=== PATIENT | male | born 1945 | race Caucasian/White ===

== ENCOUNTER 2019-01-06 18:03 | Inpatient (IN) | payer MEDICARE, BC, SELFPAY ==
[2019-01-06 18:04] VITALS: BP 173/91; PULSE 75; RESP 15; TEMP 36.7; O2SAT 97; BMI 27.3
[2019-01-06 18:18] VITALS: BP 135/99; PULSE 60; RESP 14; RESP 18; O2SAT 97; O2SAT 98
--- NOTE | 2019-01-06 18:18 | CT_ITS ---
STUDY: CT BRAIN WITHOUT CONTRAST REASON FOR EXAM: Male, 73 years old. Right sided weakness RADIATION DOSAGE (If Supplied By Facility): CTDIvol = ( 44.99 ) mGy, DLP = ( 796.11 ) mGycm TECHNIQUE: Transaxial CT imaging of the brain was performed without administration of intravenous contrast material. Individualized dose optimization techniques were used for this CT. COMPARISON: None. FINDINGS: There is no acute bleed or infarct. There are chronic ischemic and atrophic changes. The ventricles are normal in configuration. There is no hydrocephalus. The visualized paranasal sinuses are clear. The mastoid air cells are well aerated. There is no skull fracture. CT/Brain/Head without Contrast IMPRESSION: No acute intracranial abnormality. Chronic ischemic and atrophic changes. Electronically Signed: Riley Whitfield, at 19:03 EDT Tel , Service support ,
--- NOTE | 2019-01-06 18:18 | EKG12_ITS ---
Test Reason : WEAKNESS Blood Pressure : / mmHG Vent. Rate : 070 BPM Atrial Rate : 070 BPM P-R Int : 218 ms QRS Dur : 088 ms QT Int : 376 ms P-R-T Axes : 062 014 116 degrees QTc Int : 406 ms Sinus rhythm with 1st degree A-V block with Premature supraventricular complexes T wave abnormality, consider lateral ischemia Abnormal ECG Confirmed by KENAN PUGH ([id number]), editor index FANNY SHARMA ([id number]) on 01/11/2019 2:01:05 PM Referred By: Confirmed By:KENAN PUGH
[2019-01-06 18:19] VITALS: BP 154/90; PULSE 60; RESP 18; O2SAT 98
--- NOTE | 2019-01-06 18:19 | ED.VIS.STROK ---
History of Present Illness Chief Complaint: Weakness Informant: Patient, Family Onset: Yesterday - Morning Context: Sudden Onset Timing: Continuous Quality and Location: Right Facial Droop, Right Face Paresthesia, Right Arm Parasthesia, Right Leg Parasthesia, Right Leg Weakness, Slurred Speech Onset: Unspecified time Friday Current Severity: Mild Maximum Severity: Moderate Worsened by: Nothing Relieved by: Nothing Associated Symptoms: Negative for: Headache, Nausea, Vomiting, Chest Pain Narrative: Patient is an elderly male who was brought to the emergency department for evaluation for possible stroke. Pain is concerned because of facial droop, slurred speech and his symptoms. He describes right-sided symptoms that started yesterday morning. His symptoms have improved. He denies history of TIA or CVA. He is on no anticoagulant. He does not have history of atrial fibrillation. Prior similar symptoms: No Recent Illness/Hospitalization: No Past Medical History - Allergies and Home Meds Allergies/Adverse Reactions: Allergies No Known Allergies Allergy (Verified 01/06/19 18:04) Primary Care Physician: Laura Hopper [Primary Care Provider] - Prior records reviewed: No Past Medical History: - - Family history of DVT and PE 2 years ago. He is presently on Coumadin and metoprolol Lives: Alone Smoking Status: Never smoker Alcohol: None Drugs: None Review of Systems General: Denies: Chills, Fever, Sweats Eyes: Denies: Visual changes - bilaterally, Blurred Vision - bilaterally, Diplopia ENT: Denies: Rhinorrhea, Sore throat Cardiovascular: Denies: Chest pain, Palpitations Respiratory: Denies: Dyspnea, Cough, Dyspnea on exertion Gastrointestinal: Denies: Abdominal pain, Nausea, Vomiting, Diarrhea, Melena, Hematochezia Genitourinary: Denies: Dysuria, Hematuria, Frequency Musculoskeletal: Denies: Myalgias, Arthralgias, Neck pain, Back pain, Swelling, Extremity Pain Skin: Denies: Rash, Wounds Neurological: Reports: Weakness, Parasthesia, Numbness Hematologic: Denies: Easy bruising, Easy bleeding STROKE Vital Signs/Narrative: Vital Signs Temp Pulse Resp BP Pulse Ox 01/06/19 18:04 98.0 F 75 15 173/91 H 97 Inital Vital Signs reviewed: Yes - NIHSS Initial 1a Level of Consciousness: 0 1b LOC Questions (Score 2 if aphasic/stupor): 0 1c LOC Commands (Only score 1st attempt): 0 2 Best Gaze (If aphasic, use reflexive mvmts.): 0 3 Visual: 0 4 Facial Palsy: 1 5 Motor Arm Right (UN = amputation/fusion): 0 5 Motor Arm Left: 0 6 Motor Leg Right: 0 6 Motor Leg Left: 0 7 Limb ataxia (Only + if out of proportion): 0 8 Sensory (Aphasia/stupor=0 or 1, coma=2): 1 9 Best Language: 0 10 Dysarthria (mute, coma=2, intubated=UN): 1 11 Extinction and Inattention (only scored if +): 0 Total Score: 3 General: Well nourished, Well developed Head: Normocephalic, Atraumatic Eyes: Perrl, EOMI ENT: Moist mucous membranes, No rhinorrhea Neck: Supple, Nontender Cardiovascular: Regular rate, Regular rhythm, No murmurs Respiratory: No distress, CTA bilaterally, Chest nontender Abdomen: Soft, Nontender, Nondistended, Normal bowel sounds Back: Nontender, Normal Inspection Extremities: Nontender, No edema Skin: Normal color, No rash Neurological: Alert, Oriented x3, Cranial nerves II-XII grossly intact, Normal Strength, Normal DTR. Negative for: Normal Sensation Psychological: Normal affect Diagnostic/Tx/Re-eval Impressions Brain CT 01/06/19 18:18 IMPRESSION: No acute intracranial abnormality. Chronic ischemic and atrophic changes. Electronically Signed: Riley Whitfield, at 19:03 EDT Tel , Service support , 01/06/19 18:18 Brain/Head without Contrast [CT] Stat Laboratory Results 01/06/19 01/06/19 01/06/19 18:05 18:05 18:05 WBC 5.0 RBC 4.78 Hgb 14.2 Hct 43.3 MCV 90.6 MCH 29.7 MCHC 32.8 RDW Std Deviation 43.1 RDW Coeff of Wade 13.0 Plt Count 192 MPV 10.9 Immature Gran % (Auto) 0.200 Neut % (Auto) 46.8 L Lymph % (Auto) 39.6 Evans % (Auto) 11.0 H Eos % (Auto) 1.8 Baso % (Auto) 0.6 Absolute Neuts (auto) 2.3 Absolute Lymphs (auto) 1.97 Nucleated RBC % 0 PT 25.4 H INR 2.3 APTT 32.2 Sodium 140 Potassium 4.1 Chloride 110 H Carbon Dioxide 25.0 Anion Gap 5 BUN 12 Creatinine 0.98 Estim Creat Clear Calc 56.65 Est GFR (MDRD) Af Amer 96 Est GFR (MDRD) Non-Af 79 BUN/Creatinine Ratio 12.2 Glucose 90 Calcium 8.9 Troponin I < 0.015 - EKG Initial EKG Interpretation: Sinus Rhythm - Ventricular rate 70. There is first-degree AV block. There is evidence of supraventricular complexes. IA interval is prolonged at 218 ms. QS duration normal at 80 ms. QT duration is 376 ms. [place] is normal. - Medical Decision Making Stroke Team Activated: No Reviewed Inclusion/Exclusion criteria: No Was Patient considered for Endovascular Intervention?: No IV Alteplase (t-PA) Administered: No No contraindications for IV Alteplase (t-PA) administration.: No - Patient on Coumadin Alteplase (t-PA) risks, benefits, alternative discussed: No ED Disposition - Plan for ED Patient: Disposition: Acute Care Hospital [facility] Diagnosis: Acute cerebrovascular accident (CVA) Referrals: Laura Hopper [Primary Care Provider] -
[2019-01-06 18:24] VITALS: O2SAT 98
[2019-01-06 18:30] LABS: Absolute Lymphocyte Count 1.97 X10^3/uL (0.83-4.51); Absolute Neutrophil Count 2.3 X10^3/uL (2.0-7.7); Basophil# 0.03 X10^3/uL; Basophil% 0.6 % (0-1); Eosinophil# 0.09 X10^3/uL; Eosinophils% 1.8 % (0-5); Hematocrit 43.3 % (40-54); Hemoglobin 14.2 g/dL (13.0-16.5); Lymphocyte # 1.97 X10^3/ul (4.0); Lymphocyte % 39.6 % (19-41); Mean Corp Hgb Conc 32.8 g/dL (32-36); Mean Corpuscular Hgb 29.7 pg (27.0-32.0); Mean Corpuscular Volume 90.6 fL (80-94); Mean Platelet Vol. 10.9 fl (6.2-12.0); Monocyte# 0.55 X10^3/uL; NRBC Flagged by Analyzer 0 % (0-5); Neutrophil # 2.33 X10^3/uL (2.7-7.7); Neutrophil % 46.8 % (47-70); Platelet Count 192 K/mm3 (150-450); RBC Distribution Width SD 43.1 fl (35.1-43.9); Red Blood Count 4.78 M/mm3 (4.6-6.2)
[2019-01-06 18:44] LABS: Anion Gap 5 (5-15); BUN 12 mg/dL (7-18); BUN/Creat Ratio 12.2 RATIO (10-20); Calcium,Total 8.9 mg/dL (8.5-10.1); Chloride 110 mmol/L (98-107); Creatinine, Serum 0.98 mg/dL (0.70-1.30); EST Glomerular Filtration Rate 79 mL/min (>60); Est Glom Filt Rate - Afr Amer 96 mL/min (>60); Estimated Creatinine Clearance 56.65 ml/min; Glucose 90 mg/dL (74-106); Potassium 4.1 mmol/L (3.5-5.1); Sodium Level 140 mmol/L (136-145)
[2019-01-06 18:47] LABS: International Normalized Ratio 2.3; Partial Thromboplast Time 32.2 Seconds (24.1-36.2); Prothrombin Time (Protime)PT. 25.4 SECONDS (11.7-14.9)
[2019-01-06 19:38] VITALS: BMI 27.4
--- NOTE | 2019-01-06 19:43 | PCM.HP.STD ---
Problem List (1) Acute cerebrovascular accident (CVA) Status: Acute History of Present Illness Date of Admission: 01/06/19 Chief Complaint: expressive aphasia The patient is a 73 year old M with a significant history of A. fib status post ablation; DVT; and hypertriglyceridemia who presented to the emergency department with 1 day history of expressive aphasia. Also patient has right leg weakness with difficulty to ambulate. lmportantly, patient have numbness that has been going on for some time and it is unrelated to his current symptoms. Past Medical History Medical History: Medical History (Last Reviewed 01/07/19 @ 01:12 by Jordon Richards MD) BPH (benign prostatic hyperplasia) N40.0 Allergies No Known Allergies Allergy (Verified 01/06/19 18:04) Home Medications: Ambulatory Orders Medication Instructions Recorded Finasteride [Proscar] 5 mg PO DAILY 01/06/19 Metoprolol Tartrate 25 mg PO DAILY 01/06/19 Tamsulosin HCl [Flomax] 0.8 mg PO DAILY 01/06/19 Warfarin Sodium [Coumadin] 5 mg PO DAILY 01/06/19 Surgical History: - - Left tibia surgery; TURP; ablation for A. fib Lives: Alone Smoking Status: Former smoker Alcohol: None Drugs: None - *Family History Maternal History Items: Dementia, - - High triglycerides Paternal History Items: Dementia Review of Systems Constitutional: Denies: Chills, Fever, Weight Change HEENT: Denies: Head Aches, Sinus Congestion, Sinus Drainage Cardiovascular: Denies: Chest Pain, Palpitations Respiratory: Denies: Cough, Shortness of breath at rest, Sputum production Gastrointestinal: Denies: Abdominal Pain, Nausea, Vomiting Genitourinary: Denies: Dysuria Musculoskeletal: Denies: Joint Pain, Joint Tenderness Skin: Denies: Rash, Wounds Neurological: Reports: Slurred speech, Focal weakness - Right leg, Numbness - Chronic. Denies: Tingling Psychiatric: Denies: Anxiety, Depression, Homicidal Ideations, Suicidal Ideations Hematologic/ Lymphatic: Denies: Easy Bruising, Easy Bleeding VTE Information - Inpt Only VTE Present on Admission: No VTE Mechan Device Prophylaxis: None VTE Pharm Prophylaxis ordered?: No Reason prophylaxis not ordered:: Treatment Not Indicated - On Coumadin for A. fib and DVT. Coumadin continued Patient Problems: Active and Suspected Problems (Last Updated 01/06/19 @ 20:21 by Jordon Richards MD) Acute cerebrovascular accident (CVA) (Acute) - Physical Exam General: Alert, Oriented x3, Cooperative HEENT: Atraumatic, PERRLA, EOMI, Normocephalic Neck: Supple, No JVD, Negative Carotid Bruits Lungs: Clear to auscultation, Normal air movement Cardiovascular: Regular rate, No murmurs Abdomen: Bowel Sounds Present, Soft, Non Tender Extremities: No edema, Capillary Refill Less than 3 Seconds Skin: No rashes, No breakdown Musculoskeletal: No Tenderness to Palpation of Joints or Extremities Neurological: Motor Exam 5/5 strength throughout, Slurred Speech, - - Gait was not tested. Right knee reflex is hyperreflexia. Normal reflex throughout otherwise Psych/Mental Status: Normal Affect, Appropriate Vital Signs Temp Pulse Resp BP Pulse Ox 98.0 F 60 18 154/90 H 98 01/06/19 18:04 01/06/19 18:19 01/06/19 18:19 01/06/19 18:19 01/06/19 18:24 Oxygen Flow Rate (L/min) 2 Oxygen Delivery Method Nasal Cannula Weight: 74.6 kg Body Mass Index (BMI) 27.3 Finger Stick Blood Glucose 91 Laboratory Tests Past 24 Hrs 01/06/19 01/06/19 01/06/19 18:05 18:05 18:05 WBC 5.0 RBC 4.78 Hgb 14.2 Hct 43.3 MCV 90.6 MCH 29.7 MCHC 32.8 RDW Std Deviation 43.1 RDW Coeff of Wade 13.0 Plt Count 192 MPV 10.9 Immature Gran % (Auto) 0.200 Neut % (Auto) 46.8 L Lymph % (Auto) 39.6 [place] % (Auto) 11.0 H Eos % (Auto) 1.8 Baso % (Auto) 0.6 Absolute Neuts (auto) 2.3 Absolute Lymphs (auto) 1.97 Nucleated RBC % 0 PT 25.4 H INR 2.3 APTT 32.2 Sodium 140 Potassium 4.1 Chloride 110 H Carbon Dioxide 25.0 Anion Gap 5 BUN 12 Creatinine 0.98 Estim Creat Clear Calc 56.65 Est GFR (MDRD) Af Amer 96 Est GFR (MDRD) Non-Af 79 BUN/Creatinine Ratio 12.2 Glucose 90 Calcium 8.9 Troponin I < 0.015 Assessment/Plan All Active Problems (Last Updated 01/06/19 @ 20:21 by Jordon Richards MD) Acute cerebrovascular accident (CVA) (Acute) The patient is a 73 year old M with a significant history of A. fib status post ablation; DVT; and hyperlipidemia who presented to the emergency department with 1 day history of expressive aphasia; right leg weakness consistent with probable CVA. Probable CVA NINDS NIH Scale was 1 (mild to moderate dysarthria CT of the head chronic ischemic and atrophic changes -Check Hba1c, Lipid level Physical therapy, occupational therapy and speech therapy to work with patient. N.p.o. until bedside swallow eval. Daily aspirin. High intensity statin Patient is outside window of permissive hypertension since he came to emergency department in more than 24 hours. MRI/MRAM of head; brain; and neck. Echocardiogram ordered. Neurology consult Atrial fibrillation status post ablation Patient sinus rhythm with first-degree AV block on presentation Metoprolol continued Coumadin continued. INR therapeutic Hypertriglyceridemia Lipitor ordered DVT prophylaxis Not indicated since patient is therapeutic on his Coumadin. Coumadin continued. Code Visit Inpatient E&M: 78576 Init Hosp L3
[2019-01-06 20:15] VITALS: BP 120/86; PULSE 70; RESP 20; TEMP 36.4; O2SAT 97
--- NOTE | 2019-01-06 20:20 | ECHOCS_ITS ---
Reason For Study: TIA/CVA Procedure This was a 2D Doppler, Color Flow transthoracic echocardiogram. Exam performed portable in patient room. Left Ventricle Normal size and thickness. The estimated ejection fraction is 55 %. Normal diastology for age. No regional wall motion abnormalities noted. Right Ventricle Normal RV size. Normal systolic function. Atria Normal left atrium. Normal right atrium. No doppler evidence for ASD. Bubble contrast study negative for right to left interatrial shunt. Mitral Valve There is no mitral valve stenosis. Mild (1+) mitral valve insufficiency. Tricuspid Valve There is no tricuspid stenosis. Trivial tricuspid valve insufficiency. Pulmonary artery systolic pressure is 30 mmHg. Aortic Valve Trisinus/trileaflet aortic valve. There is no aortic stenosis. No aortic valve insufficiency. Pulmonic Valve There is no pulmonic valvular stenosis. No pulmonic valve insufficiency. Great Vessels Normal aortic root. Pericardium/Pleural No pericardial effusion. Medication Diluted definity 5ml given slow IV push to enhance endocardial definition. Performed a rapid injection of agitated mix of 9 cc saline and 1cc air to assess for atrial septal defect. MMode/2D Measurements & Calculations LVIDd: 4.7 cm IVSd: 1.1 cm Ao root diam: 3.3 cm LVIDs: 3.4 cm LVPWd: 1.0 cm RVDd: 3.4 cm FS: 27.5 % LAV(MOD-bp): 52.3 ml LVAd ap4: 29.2 cm2 SV(MOD-sp4): 63.1 ml LAV(MOD-bp) Indexed: 29.3 ml/m2 EDV(MOD-sp4): 94.7 ml LAV(MOD-sp2): 42.8 ml EDV(sp4-el): 95.4 ml LAV(MOD-sp4): 50.9 ml LVAs ap4: 14.6 cm2 ESV(MOD-sp4): 31.7 ml ESV(sp4-el): 31.6 ml EF(MOD-sp4): 66.6 % EF(sp4-el): 66.9 % SV(sp4-el): 63.8 ml LA A4 area: 19.3 cm2 LA dimension(2D): 3.8 cm RA A4 area: 19.4 cm2 Time Measurements MV dec time: 0.17 sec Doppler Measurements & Calculations MV E max andrei: 71.4 cm/sec Lat Peak E' Andrei: 9.6 cm/sec Med Peak E' Andrei: 7.7 cm/sec MV A max andrei: 49.1 cm/sec E/E' lat: 7.4 E/E' med: 9.2 MV E/A: 1.5 Ao V2 max: 79.1 cm/sec LV V1 max: 66.2 cm/sec PA V2 max: 72.0 cm/sec Ao max P.5 mmHg LV V1 max P.8 mmHg TR max andrei: 235.5 cm/sec TR max P.2 mmHg Interpretation Summary Diluted definity 5ml given slow IV push to enhance endocardial definition. Performed a rapid injection of agitated mix of 9 cc saline and 1cc air to assess for atrial septal defect. The estimated ejection fraction is 55 %. Normal diastology for age. Bubble contrast study negative for right to left interatrial shunt. Mild (1+) mitral valve insufficiency. The study was technically difficult. Ordering Physician: Jordon Richards Referring Physician: AGUSTIN JOLLEY Performed By: Josie Quintanilla, RDCS, RVT
[2019-01-06 20:24] VITALS: BMI 27.0
--- NOTE | 2019-01-06 20:27 | ED.RN ---
vitals at [facility] time of , 64, 99% on RA, 12 at 2000
[2019-01-06 20:28] VITALS: PULSE 60
[2019-01-06 21:21] LABS: Hemoglobin A1c 5.7 % (4.2-6.3)
[2019-01-06] MEDS: Atorvastatin Calcium 40 MG Tablet PO (22:17)
[2019-01-07] VITALS (14 sets, daily range): BP systolic 112–131; BP diastolic 60–73; PULSE 37–67; RESP 14–16; TEMP 36.2–36.6; O2SAT 94–97
--- NOTE | 2019-01-07 00:28 | EKG12_ITS ---
Test Reason : RHYTHM CHANGE Blood Pressure : / mmHG Vent. Rate : 054 BPM Atrial Rate : 067 BPM P-R Int : 266 ms QRS Dur : 088 ms QT Int : 418 ms P-R-T Axes : 071 031 108 degrees QTc Int : 396 ms Sinus rhythm with 1st degree A-V block with Blocked Premature atrial complexes T wave abnormality, consider lateral ischemia Abnormal ECG When compared with ECG of 12-AUG-2008 07:27, MANUAL COMPARISON REQUIRED, DATA IS UNCONFIRMED Confirmed by ELVIRA MIX, OZIEL ([id number]), editor city FANNY SHARMA ([id number]) on 01/11/2019 1:35:16 PM Referred By: DR GALVEZ Confirmed By:OZIEL FELIX MD
[2019-01-07 06:15] LABS: Cholesterol 183 mg/dL (200); High Density Lipoprotein 29 mg/dL; Triglycerides 355 mg/dL; Very Low Density Lipoprotein 71 mg/dL (5-40)
[2019-01-07 07:15] LABS: Bedside Glucose 92 mg/dL (70-110)
--- NOTE | 2019-01-07 09:00 | MRI_ITS ---
STUDY: MRA OF THE HEAD WITHOUT CONTRAST REASON FOR EXAM: Male, 73 years old. Expressive aphasia and right leg weakness TECHNIQUE: 3-D [id number] (TOF) imaging was performed with MIPs. The study was performed unenhanced. COMPARISON: MRI same day FINDINGS: Normal bilateral petrous carotid arteries. Normal right cavernous carotid artery with a normal supraclinoid bifurcation. Normal left cavernous carotid artery with a normal supraclinoid bifurcation. Normal right A1 segments of the anterior cerebral artery. There is non-visualization of the left A1 segment of the anterior cerebral arteries consistent with either aplastic development or an occlusion. Normal intact anterior communicating artery (ACOM). Normal bilateral A2 segments of the anterior cerebral arteries. Normal right M1 and M2 segments of the middle cerebral arteries, with a normal M1 bifurcation. Normal left M1 and M2 segments of the middle cerebral arteries, with a normal M1 bifurcation. Normal right posterior communicating artery (PCOM). Normal left posterior communicating artery (PCOM). Normal bilateral vertebral arteries. Normal basilar artery with a normal basilar bifurcation. The visualized bilateral superior cerebellar (SCA) arteries are normal. Normal bilateral P1, P2 and visualized P3 segments of the posterior cerebral arteries. There is no demonstrated aneurysm of the [place]. There is no major vessel occlusion or hemodynamically significant stenosis. There is no demonstrated abnormality of the visualized brain. MRI/MRA Head ONLY without Contrast IMPRESSION: There is non-visualization of the left A1 segment of the anterior cerebral arteries consistent with either aplastic development or an occlusion. No other MRA evidence of intracranial arterial pathology. Electronically Signed: Phillip Gatica MD at 17:40 EDT Tel , Service support ,
--- NOTE | 2019-01-07 09:00 | MRI_ITS ---
STUDY: MRA NECK WITH AND WITHOUT CONTRAST REASON FOR EXAM: Male, 73 years old. Expressive aphasia and right leg weakness TECHNIQUE: 3-D [id number] (TOF) imaging was performed in an 1.5 T MRI scanner. 15 IV Dotarem was administered for the contrast enhanced images. COMPARISON: None. FINDINGS: RIGHT CAROTID ARTERIES: Normal right common carotid artery (CCA). A mild eccentric stenosis is present at the level of the carotid bulb, not flow-limiting. Normal origin of the right internal carotid (ICA) artery without a hemodynamically significant stenosis. Normal visualized cervical portion of the right internal carotid artery. Normal origin of the right external carotid artery (ECA). LEFT CAROTID ARTERIES: Normal left common carotid artery (CCA). Normal left common carotid bulb. Normal origin of the left internal carotid (ICA) artery without a hemodynamically significant stenosis. Normal visualized cervical portion of the left internal carotid artery. Normal origin of the left external carotid artery (ECA). VERTEBRAL ARTERIES: Normal antegrade flow within the bilateral vertebral artery without a hemodynamically significant stenosis. Bovine aortic arch. MRI/MRA Neck WITH and W/O Contrast IMPRESSION: Mild eccentric right carotid bulb stenosis, not flow limiting. Otherwise, no MRA evidence of significant arterial pathology in the neck. Electronically Signed: Phillip Gatica MD at 18:36 EDT Tel , Service support ,
--- NOTE | 2019-01-07 09:00 | MRI_ITS ---
STUDY: MRI BRAIN WITHOUT CONTRAST REASON FOR EXAM: Male, 73 years old. EXPRESSIVE APHASIA, RT LEG WEAKNESS TECHNIQUE: Standardized multiplanar fat and water weighted pulse sequences were obtained. COMPARISON: CT 01/06/2019 FINDINGS: Normal size of the ventricles and extra-axial spaces for the patient's age. There are a limited number of small white matter hyperintensities, distributed throughout the deep white matter tracts of the cerebral hemispheres, consistent with mild chronic white matter ischemic changes. A focal acute infarct is present in the posterior limb of the left internal capsule extending to the reeves radiata. Normal bilateral basal ganglia. Normal thalami. There is no extra-axial fluid accumulation. Normal flow voids within the major intracranial circulation suggesting patency by spin echo criteria. Normal sella turcica, pituitary gland, infundibular stalk, optic chiasm and hypothalamus. Normal tectal plate and pineal gland. Normal midbrain, roxane and medulla. Normal cerebellum. Normal basal cisterns. Normal bilateral temporal bones. Normal bilateral internal auditory canals. No demonstrated orbital abnormality, within the constraints of a routine brain study. Normal visualized paranasal sinuses. Normal calvarium and skull base. Normal visualized soft tissue structures. Normal visualized upper cervical spine. MRI/Brain without Contrast IMPRESSION: A focal acute infarct is present in the posterior limb of the left internal capsule extending to the reeves radiata. No evidence of intracranial hemorrhage. Electronically Signed: Phillip Gatica MD at 17:29 EDT Tel , Service support ,
[2019-01-07] MEDS: Finasteride 5 MG Tablet PO (11:24)
[2019-01-07] MEDS: Aspirin 81 MG TAB.CHEW PO (11:24)
[2019-01-07] MEDS: Tamsulosin HCl 0.4 MG Capsule 0.8 MG PO (11:25)
--- NOTE | 2019-01-07 13:40 | PN_ITS ---
<Mann Winslow - Last Filed: 01/07/19 13:40> Patient Problems: Active and Suspected Problems (Last Reviewed 01/07/19 @ 01:12 by Jordon Richards MD) Acute cerebrovascular accident (CVA) (Acute) Subjective: Patient complains of ongoing slurred speech and right sided upper and lower extremity weakness. Family states slight facial droop is chronic and not new. No hx stroke. Pt also follows up with cardiology at [facility] [place] Dr. Barroso, prior ablation for afib in the past at [facility]. States he always had symptoms when he had afib in the past and has not had any of these recently. No dizziness/LH. No ortho changes. No syncope. - Physical Exam General: Alert, Oriented x3, Cooperative HEENT: Atraumatic, PERRLA, EOMI, Normocephalic Neck: Supple, No JVD, Negative Carotid Bruits Lungs: Clear to auscultation, Normal air movement Cardiovascular: Regular rate, No murmurs Abdomen: Bowel Sounds Present, Soft, Non Tender Extremities: No edema, Capillary Refill Less than 3 Seconds Skin: No rashes, No breakdown Musculoskeletal: No Tenderness to Palpation of Joints or Extremities Neurological: Cranial nerves II-XII grossly intact, Facial Droop - (fm states chronic), Slurred Speech Psych/Mental Status: Normal Affect, Appropriate, Alert and oriented to time, place, person, mood and affect Vital Signs Temp Pulse Resp BP Pulse Ox 97.2 F L 65 16 124/72 H 96 01/07/19 12:15 01/07/19 12:15 01/07/19 12:15 01/07/19 12:15 01/07/19 12:15 Oxygen Flow Rate (L/min) 2 Oxygen Delivery Method Room Air Weight: 157 lb 6.561 oz Body Mass Index (BMI) 27.0 Finger Stick Blood Glucose 91 Intake and Output for Last 24 Hours 01/05/19 01/06/19 01/07/19 23:59 23:59 23:59 Intake Total 200 / 200 50 / 50 Balance 200 / 200 50 / 50 Laboratory Tests Past 24 Hrs 01/06/19 01/06/19 01/06/19 18:05 18:05 18:05 WBC 5.0 RBC 4.78 Hgb 14.2 Hct 43.3 MCV 90.6 MCH 29.7 MCHC 32.8 RDW Std Deviation 43.1 RDW Coeff of Wade 13.0 Plt Count 192 MPV 10.9 Immature Gran % (Auto) 0.200 Neut % (Auto) 46.8 L Lymph % (Auto) 39.6 Armstrong % (Auto) 11.0 H Eos % (Auto) 1.8 Baso % (Auto) 0.6 Absolute Neuts (auto) 2.3 Absolute Lymphs (auto) 1.97 Nucleated RBC % 0 PT 25.4 H INR 2.3 APTT 32.2 Sodium 140 Potassium 4.1 Chloride 110 H Carbon Dioxide 25.0 Anion Gap 5 BUN 12 Creatinine 0.98 Estim Creat Clear Calc 56.65 Est GFR (MDRD) Af Amer 96 Est GFR (MDRD) Non-Af 79 BUN/Creatinine Ratio 12.2 Glucose 90 Hemoglobin A1c Calcium 8.9 Troponin I < 0.015 Triglycerides Cholesterol LDL Cholesterol VLDL Cholesterol HDL Cholesterol 01/06/19 01/07/19 18:05 05:20 WBC RBC Hgb Hct MCV MCH MCHC RDW Std Deviation RDW Coeff of Wade Plt Count MPV Immature Gran % (Auto) Neut % (Auto) Lymph % (Auto) Armstrong % (Auto) Eos % (Auto) Baso % (Auto) Absolute Neuts (auto) Absolute Lymphs (auto) Nucleated RBC % PT INR APTT Sodium Potassium Chloride Carbon Dioxide Anion Gap BUN Creatinine Estim Creat Clear Calc Est GFR (MDRD) Af Amer Est GFR (MDRD) Non-Af BUN/Creatinine Ratio Glucose Hemoglobin A1c 5.7 Calcium Troponin I Triglycerides 355 H Cholesterol 183 LDL Cholesterol 83 VLDL Cholesterol 71 H HDL Cholesterol 29 L POC Glucose 01/06/19 18:07 POC Glucose 92 Medical Necessity - Tobacco Use Smoking Status: Former smoker Assessment/Plan All Active Problems (Last Reviewed 01/07/19 @ 01:12 by Jordon Richards MD) Acute cerebrovascular accident (CVA) (Acute) 1. Suspected CVA - MRI brain MRA head and neck pending. Echo unremarkable. Neuro consult pending. Speech change and weakness still present. No prior stroke. Continue asa/statin. Already on warfarin. PTOTST evals. A1C 5.7 which is appropriate for his age. 2. bradycardia with jamarikebach noted on 1 strip, also non conducted PACs - curbsided Dr. Aleman. pts conor is asymptomatic. He felt it would be appropriate for a holter monitor as o/p and follow up with his own health center manager in [place]. Will decrease metoprolol to half. 3. Hx PAfib - s/p ablation at [facility]. No afib on monitor. Continue warfarin - therapeutic. As above decreasing metoprolol for conor. 4. BPH - flomax, proscar DVT ppx: warfarin DC planning: PTOT, neuro consult. This patient was seen by Mann Winslow PA-C under the supervision of Doctor Ruby. <Jose Beltran - Last Filed: 01/07/19 14:07> Subjective: Still with expressive aphasia. - Physical Exam General: Alert, Cooperative HEENT: Atraumatic, PERRLA, EOMI, Normocephalic Neck: No Nodes, Trachea Midline Lungs: Clear to auscultation, Normal air movement, No rhonchi, No wheeze Cardiovascular: Regular rate, Regular Rhythm, Normal S1, Normal S2, No murmurs Abdomen: Bowel Sounds Present, Soft, Non Tender Extremities: No edema, No Calf Tenderness Skin: No rashes, No breakdown Musculoskeletal: No Tenderness to Palpation of Joints or Extremities, No Muscle Wasting Neurological: Cranial nerves II-XII grossly intact, Motor Exam 5/5 strength throughout Psych/Mental Status: Normal Affect, Appropriate Vital Signs Temp Pulse Resp BP Pulse Ox 36.2 C L 65 16 124/72 H 96 01/07/19 12:15 01/07/19 12:15 01/07/19 12:15 01/07/19 12:15 01/07/19 12:15 Oxygen Flow Rate (L/min) 2 Oxygen Delivery Method Room Air Weight: 71.4 kg Body Mass Index (BMI) 27.0 Finger Stick Blood Glucose 91 Intake and Output for Last 24 Hours 01/05/19 01/06/19 01/07/19 23:59 23:59 23:59 Intake Total 200 / 200 50 / 50 Balance 200 / 200 50 / 50 Laboratory Tests Past 24 Hrs 01/06/19 01/06/19 01/06/19 18:05 18:05 18:05 WBC 5.0 RBC 4.78 Hgb 14.2 Hct 43.3 MCV 90.6 MCH 29.7 MCHC 32.8 RDW Std Deviation 43.1 RDW Coeff of Wade 13.0 Plt Count 192 MPV 10.9 Immature Gran % (Auto) 0.200 Neut % (Auto) 46.8 L Lymph % (Auto) 39.6 Armstrong % (Auto) 11.0 H Eos % (Auto) 1.8 Baso % (Auto) 0.6 Absolute Neuts (auto) 2.3 Absolute Lymphs (auto) 1.97 Nucleated RBC % 0 PT 25.4 H INR 2.3 APTT 32.2 Sodium 140 Potassium 4.1 Chloride 110 H Carbon Dioxide 25.0 Anion Gap 5 BUN 12 Creatinine 0.98 Estim Creat Clear Calc 56.65 Est GFR (MDRD) Af Amer 96 Est GFR (MDRD) Non-Af 79 BUN/Creatinine Ratio 12.2 Glucose 90 Hemoglobin A1c Calcium 8.9 Troponin I < 0.015 Triglycerides Cholesterol LDL Cholesterol VLDL Cholesterol HDL Cholesterol 01/06/19 01/07/19 18:05 05:20 WBC RBC Hgb Hct MCV MCH MCHC RDW Std Deviation RDW Coeff of Wade Plt Count MPV Immature Gran % (Auto) Neut % (Auto) Lymph % (Auto) Armstrong % (Auto) Eos % (Auto) Baso % (Auto) Absolute Neuts (auto) Absolute Lymphs (auto) Nucleated RBC % PT INR APTT Sodium Potassium Chloride Carbon Dioxide Anion Gap BUN Creatinine Estim Creat Clear Calc Est GFR (MDRD) Af Amer Est GFR (MDRD) Non-Af BUN/Creatinine Ratio Glucose Hemoglobin A1c 5.7 Calcium Troponin I Triglycerides 355 H Cholesterol 183 LDL Cholesterol 83 VLDL Cholesterol 71 H HDL Cholesterol 29 L POC Glucose 01/06/19 18:07 POC Glucose 92 Assessment/Plan Patient seen and examined independently. Data reviewed. I agree with the above note by the physician licensed loan officer assistant. 1. Suspected acute CVA * ongoing dysarthria, subjective * continue with CVA work up. * neurology consult Code Visit Inpatient E&M: 07876 Subs Hosp L3
--- NOTE | 2019-01-07 15:53 | CASEMGMT ---
KARLI PAREDES assessment: Face to Face with patient for initial transition planning/care coordination assessment. KARLI PAREDES introduced self and role at [facility], pt voices understanding and consents to assessment at this time. Pt is sitting up in bed in no distress at this time. Pt is A/Ox4 at this time and answers all questions appropriately at this time. Two of pt's children at bedside during assessment. Care providers, pharmacy, and demographics verified at this time. PCP: Laura Hopper [facility] Specialists: [facility] in [place] Preferred Pharmacy: [facility] Insurance: [facility] [place], [place], [place] Prescription Benefit: [place] [employer] Living Will/HPOA: Pt is unsure whether he has LW/HPOA at this time. Pt/family state they will look into whether pt has or not. Pt/family aware that [facility] SW can assist in completing if pt prefers, voices understanding. LNOK: Blanca Sanchez, daughter; Naveed Sanchez, son Living Arrangements: Pt states lives alone in 1 story home and states no concerns at home at this time. Pt is independent with ADL's. Transportation: Pt states drives self and states no transportation concerns at this time. DME/HHC: Pt states has a cane and shower chair but does not normally use either. Pt states no need for any further DME at this time. Pt states no hx of HHC or SNF in the past. Pt is agreeable to OP therapy for OT/ST at this time per therapy recommendation and would like to take the script to a place in [place] but is unsure of name at this time. OP therapy script provided to pt at this time. Pt/family voice no concerns with going home at time of discharge. Pt is retired. Pt states does not smoke or drink ETOH. Pt states no further concerns/needs at this time. CM to follow for any further discharge planning/needs. Advised pt to ask for CM if any further questions/concerns/needs arise, voices understanding. Pt Goal: Home Plan: Home, MRI is still pending at this time. S[place] KARLI PAREDES
[2019-01-07] MEDS: Atorvastatin Calcium 40 MG Tablet PO (21:26)
[2019-01-08] VITALS (8 sets, daily range): BP systolic 98–115; BP diastolic 58–77; PULSE 46–63; RESP 14–16; TEMP 36.4; O2SAT 94–96; BMI 27.0
[2019-01-08 06:39] LABS: International Normalized Ratio 2.2; Prothrombin Time (Protime)PT. 24.7 SECONDS (11.7-14.9)
[2019-01-08] MEDS: Finasteride 5 MG Tablet PO (08:43)
[2019-01-08] MEDS: Aspirin 81 MG TAB.CHEW PO (08:43)
[2019-01-08] MEDS: Metoprolol Tartrate 25 MG Tablet 12.5 MG PO (08:43)
[2019-01-08] MEDS: Tamsulosin HCl 0.4 MG Capsule 0.8 MG PO (08:43)
--- NOTE | 2019-01-08 10:29 | CASEMGMT ---
SW completed a PHQ-9 with patient as he had a Stroke. Patient scored a 0 which indicates no depression. Mary RETANA MSW
--- NOTE | 2019-01-08 11:03 | CASEMGMT ---
Pt states does have [facility] coverage and updated clinical[facility] at this time. Pt is to be discharged today and d/c summary/instructions will be faxed once obtained. Pt to be sent home on Maciel and Ivan CALVILLO CM will f/u on coverage/co-pay. Roxane CALVILLO CM
--- NOTE | 2019-01-08 11:11 | PCM.DC ---
- Discharge Diagnoses Current Active Problems: Current Active and Chronic Problems (Last Reviewed 01/07/19 @ 01:12 by Jordon Richards MD) Acute cerebrovascular accident (CVA) (Acute) You will use the following diet at home:: Cardiac Your food should be the consistency of: Regular Your liquids should be the consistency of: Regular/Thin Discharge Activity: Return to Normal Activity Allergies/Adverse Reactions: Allergies No Known Allergies Allergy (Verified 01/06/19 18:04) Medications to take at Discharge Finasteride [Proscar] 5 mg PO DAILY 01/06/19 Tamsulosin HCl [Flomax] 0.8 mg PO DAILY 01/06/19 Apixaban [Eliquis] 5 mg PO BID #60 tab 01/08/19 Aspirin [Aspirin, Baby] 81 mg PO DAILY@0800 tab.chew 01/08/19 Atorvastatin Calcium [Lipitor] 40 mg PO QHS #30 tab 01/08/19 Metoprolol Tartrate [Lopressor (beta candy)] 12.5 mg PO DAILY tablet 01/08/19 The following prescriptions were given: Apixaban [Eliquis] 5 mg PO BID #60 tab Transmission Status: Received by [facility]/pharmacy #[id number] Atorvastatin Calcium [Lipitor] 40 mg PO QHS #30 tab Transmission Status: Pending to [facility]/pharmacy #[id number] Primary Care Physician: Laura Hopper [Primary Care Provider] - Please follow up with your Primary Care Physician in: 1-2 weeks Test Results: Test results from this visit will be discussed in further detail at your follow-up appointment, if applicable. Please Follow Up With: Jac Monge MD When: 3-4 weeks Please Follow Up With: [facility] - Your own When: 2 weeks Proposed Discharge Date: 01/08/19
--- NOTE | 2019-01-08 11:18 | CASEMGMT ---
RN CM Note: Call to [facility] pharmacy. Eliquis script will be $91.30. Pt given 30 day free card and should fill locally for first 30 days. Reviewed with pt that he can have subsequent refills @ [facility] is this would be cheaper for him. Pt and daughter voiced understanding. Ivan KIMN RN ACM
--- NOTE | 2019-01-08 11:58 | PCM.CONS.GEN ---
Problem List (1) Acute cerebrovascular accident (CVA) Status: Acute Reason for Consult Date of Consultation: 01/08/19 Reason for Consultation: Stroke History of Present Illness: The patient is a 73 year old M PMH ?HTN, HLD, A. fib on Coumadin, history of DVT admitted with slurred speech and right-sided weakness. Per patient his symptoms started about 3 days ago on 01/05/2019 when he started having slurred speech, right-sided weakness with facial droop, and was admitted on 01/06/2019. Per ED documentation NIHSS was 3 on admission, patient was not a TPA candidate, patient is on Coumadin for A. fib and his INR was therapeutic 2.3 on admission, per patient his symptoms of the right-sided weakness has pretty much resolved, but has some mild dysarthria, denies any headache dizziness, visual disturbances, sensory loss at present. Per patient he lives alone, denies any frequent falls, does not use cane or walker to ambulate, does drive, and does not need any assistance for his ADLs. MRI brain done on admission showed acute infarct in the posterior limb of the left internal capsule extending to the coronary radiata, MRA head showed left A1 segment nonvisualization, MRA neck but it does show any hemodynamically significant stenosis or occlusion of the ICA. [] Past Medical History Medical History: Medical History (Last Reviewed 01/07/19 @ 01:12 by Jordon Richards MD) BPH (benign prostatic hyperplasia) N40.0 Allergies No Known Allergies Allergy (Verified 01/06/19 18:04) Home Medications: Ambulatory Orders Medication Instructions Recorded Finasteride [Proscar] 5 mg PO DAILY 01/06/19 Tamsulosin HCl [Flomax] 0.8 mg PO DAILY 01/06/19 Apixaban [Eliquis] 5 mg PO BID #60 tab 01/08/19 Aspirin [Aspirin, Baby] 81 mg PO DAILY@0800 tab.chew 01/08/19 Atorvastatin Calcium [Lipitor] 40 mg PO QHS #30 tab 01/08/19 Metoprolol Tartrate [Lopressor 12.5 mg PO DAILY tab 01/08/19 (beta candy)] Surgical History: - - Left tibia surgery; TURP; ablation for A. fib Lives: Alone Smoking Status: Former smoker Alcohol: None Drugs: None - *Family History Maternal History Items: Dementia, - - High triglycerides Paternal History Items: Dementia Review of Systems Constitutional: Reports: - - Complete ROS negative except as documented in HPI Patient Problems: Active and Suspected Problems (Last Reviewed 01/07/19 @ 01:12 by Jordno Richards MD) Acute cerebrovascular accident (CVA) (Acute) - Physical Exam General: Alert HEENT: Normocephalic Neck: Supple Lungs: Normal air movement Cardiovascular: Normal S1, Normal S2 Abdomen: Bowel Sounds Present Extremities: No cyanosis Neurological: - - Conscious, alert, AAO x3, CN II through XII grossly intact, power 5 x 5 both upper and lower extremities, no sensory loss, no cerebellar signs, no pronator drift, gait deferred, reflexes + B/L B/S/T/K/A, mild dysarthria, NIHSS 1 at present, mRS 0 at baseline Psych/Mental Status: Normal Affect Vital Signs Temp Pulse Resp BP Pulse Ox 97.6 F L 63 14 108/77 96 01/08/19 08:15 01/08/19 08:43 01/08/19 08:15 01/08/19 08:15 01/08/19 08:15 Oxygen Flow Rate (L/min) 2 Oxygen Delivery Method Room Air Weight: 71.4 kg Body Mass Index (BMI) 27.0 Finger Stick Blood Glucose 91 Intake and Output for Last 24 Hours 01/06/19 01/07/19 01/08/19 23:59 23:59 23:59 Intake Total 200 / 200 170 / 170 Balance 200 / 200 170 / 170 Laboratory Tests Past 24 Hrs 01/08/19 05:34 PT 24.7 H INR 2.2 Assessment/Plan All Active Problems (Last Reviewed 01/07/19 @ 01:12 by Jordon Richards MD) Acute cerebrovascular accident (CVA) (Acute) The patient is a 73 year old M PMH ?HTN, HLD, A. fib on Coumadin, history of DVT admitted with slurred speech and right-sided weakness. Per patient his symptoms started about 3 days ago on 01/05/2019 when he started having slurred speech, right-sided weakness with facial droop, and was admitted on 01/06/2019. Per ED documentation NIHSS was 3 on admission, patient was not a TPA candidate, patient is on Coumadin for A. fib and his INR was therapeutic 2.3 on admission, per patient his symptoms of the right-sided weakness has pretty much resolved, but has some mild dysarthria, denies any headache dizziness, visual disturbances, sensory loss at present. Per patient he lives alone, denies any frequent falls, does not use cane or walker to ambulate, does drive, and does not need any assistance for his ADLs. MRI brain done on admission showed acute infarct in the posterior limb of the left internal capsule extending to the reeves radiata, MRA head showed left A1 segment nonvisualization, MRA neck but it does show any hemodynamically significant stenosis or occlusion of the ICA. Impression Acute left MCA stroke (acute left posterior limb of internal capsule infarct extending into reeves radiata) Plan ?Change Coumadin to Eliquis 5 mg p.o. twice daily once INR is less than 2 and if there is no contraindication from cardiology standpoint. Bleeding risks discussed in detail with the patient. Patient agreeable to change Coumadin to Eliquis. To stop aspirin once Eliquis is started from neurology standpoint. ?On Lipitor 40 mg p.o. nightly ?MRI brain done on admission showed acute infarct in the posterior limb of the left internal capsule extending to the reeves radiata, MRA head showed left A1 segment nonvisualization, MRA neck but it does show any hemodynamically significant stenosis or occlusion of the ICA. ?Cardiology consult ?TTE?EF 55%, normal LA size, no PFO. ?LDL 83, HbA1c 5.7 ?Frequent neurochecks ?Stroke risk factors discussed and stroke education provided. ?Goal blood pressure less than 130/80 mmHg and goal HbA1c less than 7% ?PT/OT ?GI/DVT prophylaxis ?Fall precautions ?Further medical management per hospitalist team ?Follow-up with neurology as outpatient in 2 to 4 weeks ?Please call with questions if any ?Thank you for allowing us to participate in patient's care and management This note has been generated using [employer] dictation software. It may contain incorrect words, spellings and punctuation's that were not noted in the review of the note prior to signing. Code Visit Inpatient E&M: 54490 Init Hosp L3
--- NOTE | 2019-01-08 13:19 | DS.PCM_ITS ---
<Mann Winslow - Last Filed: 01/08/19 13:19> Discharge Date and Diagnosis - Problem List Patient Problems: Active and Suspected Problems (Last Reviewed 01/07/19 @ 01:12 by Jordon Richards MD) Acute cerebrovascular accident (CVA) (Acute) Date of Admission: 01/06/19 Date of Discharge: 01/08/19 - Primary Discharge Diagnosis Active and Suspected Problems (Last Reviewed 01/07/19 @ 01:12 by Jordon Richards MD) Acute cerebrovascular accident posterior limb of the left internal capsule extending to the reeves radiata Bradycardia with second-degree wenkebach heart block, and nonconducted PACs Hx Pafib, prior ablation BPH Hospital Course and Treatment Imaging Results: CT/Brain/Head without Contrast IMPRESSION: No acute intracranial abnormality. Chronic ischemic and atrophic changes. Echo: Interpretation Summary Diluted definity 5ml given slow IV push to enhance endocardial definition. Performed a rapid injection of agitated mix of 9 cc saline and 1cc air to assess for atrial septal defect. The estimated ejection fraction is 55 %. Normal diastology for age. Bubble contrast study negative for right to left interatrial shunt. Mild (1+) mitral valve insufficiency. The study was technically difficult. MRI/Brain without Contrast IMPRESSION: A focal acute infarct is present in the posterior limb of the left internal capsule extending to the reeves radiata. No evidence of intracranial hemorrhage. MRI/MRA Head ONLY without Contrast IMPRESSION: There is non-visualization of the left A1 segment of the anterior cerebral arteries consistent with either aplastic development or an occlusion. No other MRA evidence of intracranial arterial pathology. MRI/MRA Neck WITH and W/O Contrast IMPRESSION: Mild eccentric right carotid bulb stenosis, not flow limiting. Otherwise, no MRA evidence of significant arterial pathology in the neck. Consults: Neuro - [place]. Operations: None Procedures: 2-D Echocardiogram Summary of Care Provided: Hospital Course: The patient is a 73 year old M with past medical history of paroxysmal atrial fibrillation on Coumadin, prior ablation, BPH, who presented to the emergency room with sudden onset of difficulty speaking and right upper and lower extremity weakness. Patient had a negative CT of the brain and was admitted to the PCU on telemetry for stroke work-up. He underwent an MRI of the brain which did reveal an acute infarct in the posterior limb of the left capsule extending to the reeves radiata. Neurology was consulted. MRA of the head and neck was obtained, noted nonvisualization of the left A1 segment of the left anterior cerebral artery, and mild eccentric right carotid bulb stenosis. Neurology recommended switching anticoagulants from warfarin to Eliquis. He was placed on Lipitor as well. The patient will discontinue Coumadin and refrain from taking Eliquis for 2 days. He can stop aspirin when he starts the Eliquis. He did have some ongoing right-sided weakness and slurred speech and outpatient occupational and speech therapy were recommended. Also while here he was noted to have some bradycardia with nonconducted PACs and intermittent type II Wenckebach heart block. His metoprolol was cut in half. He [place] with cardiology [place] and we advised him to follow-up with them. He would benefit from placement of a 30-day event monitor which I have advised him to discuss with his publications designer and his PCP. Lipid panel was performed revealing most notably triglycerides at 355. A1c was checked and was found to be 5.7 which is appropriate for his age. He was discharged home in stable condition with outpatient physical therapy. He will need follow-up with his PCP in 1 to 2 weeks, follow-up with his publications designer in 2 weeks ([place]), and follow-up with neurology in 3 to 4 weeks. This patient was seen by Mann Winslow PA-C under the supervision of Doctor Ruby. [] Patient Problems: Active and Suspected Problems (Last Reviewed 01/07/19 @ 01:12 by Jordon Richards MD) Acute cerebrovascular accident (CVA) (Acute) - Physical Exam General: Alert, Oriented x3, Cooperative HEENT: Atraumatic, PERRLA, EOMI, Normocephalic Neck: Supple, No JVD, Negative Carotid Bruits Lungs: Clear to auscultation, Normal air movement Cardiovascular: Regular rate, No murmurs Abdomen: Bowel Sounds Present, Soft, Non Tender Extremities: No edema, Capillary Refill Less than 3 Seconds Skin: No rashes, No breakdown Musculoskeletal: No Tenderness to Palpation of Joints or Extremities Neurological: Cranial nerves II-XII grossly intact, Slurred Speech - slight, - - mildly decreased right arm and leg weakness. Psych/Mental Status: Normal Affect, Appropriate, Alert and oriented to time, place, person, mood and affect Vital Signs Temp Pulse Resp BP Pulse Ox 97.6 F L 63 14 108/77 96 01/08/19 08:15 01/08/19 08:43 01/08/19 08:15 01/08/19 08:15 01/08/19 08:15 Oxygen Flow Rate (L/min) 2 Oxygen Delivery Method Room Air Weight: 157 lb 6.561 oz Body Mass Index (BMI) 27.0 Finger Stick Blood Glucose 91 Intake and Output for Last 24 Hours 01/06/19 01/07/19 01/08/19 23:59 23:59 23:59 Intake Total 200 / 200 170 / 170 Balance 200 / 200 170 / 170 Laboratory Tests Past 24 Hrs 01/08/19 05:34 PT 24.7 H INR 2.2 Discharge Diet: Low fat/ Low Cholesterol, 2000 mg Sodium Diet Discharge Activity: Return to Normal Activity Home Medications: Medications to take at Discharge Finasteride [Proscar] 5 mg PO DAILY 01/06/19 Tamsulosin HCl [Flomax] 0.8 mg PO DAILY 01/06/19 Apixaban [Eliquis] 5 mg PO BID #60 tab 01/08/19 Aspirin [Aspirin, Baby] 81 mg PO DAILY@0800 tab.chew 01/08/19 Atorvastatin Calcium [Lipitor] 40 mg PO QHS #30 tab 01/08/19 Metoprolol Tartrate [Lopressor (beta candy)] 12.5 mg PO DAILY tab 01/08/19 Following Prescrptions Were Given to Patient: Apixaban [Eliquis] 5 mg PO BID #60 tab Transmission Status: Received by [facility]/pharmacy #[id number] Atorvastatin Calcium [Lipitor] 40 mg PO QHS #30 tab Transmission Status: Received by [facility]/pharmacy #[id number] Primary Care Physician: Laura Hopper [Primary Care Provider] - Please follow up with your Primary Care Physician in: 1-2 weeks Please Follow Up With: bisi iglesias N.P. When: 3-4 weeks Please Follow Up With: [facility]/ When: 2 weeks Please Follow Up With: Laura Hopper Disposition: Home Minutes spent on discharge:: 35 Patient Condition:: Stable Medical Necessity - Tobacco Use Smoking Status: Former smoker Meaningful Use Info Meaningful Use Diagnoses (Choose all that apply): Ischemic CVA - CVA Therapy Assessed for PT,OT and/or ST?: Yes - Ischemic Stroke Antithrombotic order at d/c?: No Reason antithrombotic not ordered: Procedure not Indicated Dx of Atrial fib/flutter?: Yes Anticoagulant at discharge?: Yes Statins at discharge?: Yes Primary Dx Acute Ischemic CVA?: Yes IV tPA ordered during stay?: No Reason IV t-PA not ordered: Procedure not Indicated <Jose Beltran - Last Filed: 01/08/19 13:55> Hospital Course and Treatment Imaging Results: Clinical Impression(s) from Imaging Studies Brain CT 01/06/19 18:18 IMPRESSION: No acute intracranial abnormality. Chronic ischemic and atrophic changes. Electronically Signed: Riley Whitfield, at 19:03 EDT Tel , Service support , Brain MRI 01/07/19 09:00 IMPRESSION: A focal acute infarct is present in the posterior limb of the left internal capsule extending to the reeves radiata. No evidence of intracranial hemorrhage. Electronically Signed: Phillip Gatica MD at 17:29 EDT Tel , Service support , Head MRA 01/07/19 09:00 IMPRESSION: There is non-visualization of the left A1 segment of the anterior cerebral arteries consistent with either aplastic development or an occlusion. No other MRA evidence of intracranial arterial pathology. Electronically Signed: Phillip Gatica MD at 17:40 EDT Tel , Service support , Neck MRA 01/07/19 09:00 IMPRESSION: Mild eccentric right carotid bulb stenosis, not flow limiting. Otherwise, no MRA evidence of significant arterial pathology in the neck. Electronically Signed: Phillip Gatica MD at 18:36 EDT Tel , Service support , Operations: None Procedures: 2-D Echocardiogram Summary of Care Provided: Patient seen and examined independently. Data reviewed. I agree with the above note by the physician lpn or medical assistant. The patient is a 73 year old M presents with expressive a aphasia. Patient was found to have an acute focal infarct in the posterior limb of the left internal capsule.. Patient was seen by cardiology and recommended patient being taken to a novel anticoagulant given the fact that patient is already on Coumadin and was therapeutic. [place] to be a Coumadin failure. Patient will hold his Coumadin and then start Eliquis. [] Subjective: Expressive aphasia improved. - Physical Exam General: Alert, Cooperative HEENT: Atraumatic, Normocephalic Lungs: Clear to auscultation, Normal air movement, No rhonchi Cardiovascular: Regular rate, Regular Rhythm, Normal S1, Normal S2 Abdomen: Bowel Sounds Present, Soft, Non Tender, Non-Distended Vital Signs Temp Pulse Resp BP Pulse Ox 36.4 C L 63 14 108/77 96 01/08/19 08:15 01/08/19 08:43 01/08/19 08:15 01/08/19 08:15 01/08/19 08:15 Oxygen Flow Rate (L/min) 2 Oxygen Delivery Method Room Air Weight: 71.4 kg Body Mass Index (BMI) 27.0 Finger Stick Blood Glucose 91 Intake and Output for Last 24 Hours 01/06/19 01/07/19 01/08/19 23:59 23:59 23:59 Intake Total 200 / 200 170 / 170 Balance 200 / 200 170 / 170 Laboratory Tests Past 24 Hrs 01/08/19 05:34 PT 24.7 H INR 2.2 Discharge Diet: Low fat/ Low Cholesterol, 2000 mg Sodium Diet Discharge Activity: Return to Normal Activity Disposition: Home Minutes spent on discharge:: 35 Patient Condition:: Stable Medical Necessity - Tobacco Use Smoking Status: Former smoker Meaningful Use Info Meaningful Use Diagnoses (Choose all that apply): Ischemic CVA - CVA Therapy Assessed for PT,OT and/or ST?: Yes - Ischemic Stroke Antithrombotic order at d/c?: No Reason antithrombotic not ordered: Procedure not Indicated Dx of Atrial fib/flutter?: Yes Anticoagulant at discharge?: Yes Statins at discharge?: Yes Primary Dx Acute Ischemic CVA?: Yes IV tPA ordered during stay?: No Reason IV t-PA not ordered: Procedure not Indicated Code Visit Inpatient E&M: 50429 Disch Hosp
--- NOTE | 2019-01-08 14:32 | CASEMGMT ---
KARLI CM Note: DC Summary faxed to [facility]. Ivan KIMN RN ACM
--- NOTE | 2019-01-11 15:45 | CASEMGMT ---
KARLI PAREDES discharge f/u phone call LACE: 10 Strata: 3 Discharge date: 01/08/19 Call date: 01/11/19 Call time: [id number] Duration: 2 minutes Admission dx: Acute CVA Pt states has been doing 'pretty good' since discharge. Pt states no questions regarding discharge instructions or medications at this time. Pt states has OP therapy set up for this friday and f/u's with his PCP tomorrow. Pt also states that he plans to keep f/u with [place] with neurology. Pt states no suggestions for [facility] at this time. Pt voices no further questions/concerns/needs at this time. [place] KARLI PAREDES
== END 2019-01-08 13:35 | disposition home or self-care (01) | DRG 66 ==
LOC: ED 19:25 → PCU 20:27
PROVIDERS: Physician Assistant; Admitting Provider Hospitalist; Emergency Provider Emergency Medicine; Family Provider Internal Medicine; PCP Internal Medicine
DX: I63.512 Cerebral infarction due to unspecified occlusion or stenosis of left middle cerebral artery (principal); R47.01 Aphasia; N40.0 Benign prostatic hyperplasia without lower urinary tract symptoms; E78.1 Pure hyperglyceridemia; R47.1 Dysarthria and anarthria; I44.1 Atrioventricular block, second degree; R29.703 NIHSS score 3; Z79.01 Long term (current) use of anticoagulants; Z87.891 Personal history of nicotine dependence; R00.1 Bradycardia, unspecified; I48.0 Paroxysmal atrial fibrillation
CPT/HCPCS: 36415; 70450; 70544; 70549; 70551; 80048; 80061; 82962; 83036; 84484; 85025; 85610; 85730; 92507; 92523; 92610; 93005; 93306; 94762; 97162; 97166; 97530; 97802; 99285; A9575; Q9957; A4216; C8929